=== PATIENT | female | born 1980 | race Caucasian/White ===

== ENCOUNTER 2017-03-12 20:58 | Emergency (ER) | payer SELFPAY ==
[~2017-03-12] VITALS: Ht 154.9 cm; Wt 50.5 kg
[~2017-03-12 20:58] MED LIST: AZITHROMYCIN500 M1 PO; CEFTIN500 MG PO; LEVAQUIN500 MG PO; NAPROXEN500 MG PO; NORCO 5/3251 TABLET PO; ORAL ANESTHETIC7 GM MM; PERCOCET 5/31 TABLET PO; SKELAXIN800 MG PO
[2017-03-12] MEDS ORDERED: WELLBUTRIN XL150 MG PO (22:01)
[2017-03-12 22:17] LABS: HEMATOCRIT 40.5 % (36.0-46.0); MCH 30.1 PG (29.0-34.0); MCHC 33.3 G/DL (30.0-36.0); MCV 90.4 FL (83-99); MEAN PLAT.VOLUME 11.3 uM^3 (9.5-12.4); PLATELET COUNT 203 K/uL (156-360); RBC DIS.WIDTH-CV 13.1 % (11.8-14.6); RBC DIS.WIDTH-SD 43.1 % (39-53); RED BLOOD COUNT 4.48 M/uL (3.80-5.20); WHITE BLOOD COUNT 6.7 K/uL (4.1-10.2)
[2017-03-12 22:27] LABS: CHLORIDE 106 mEq/L (99-109); POTASSIUM 4.3 mEq/L (3.7-5.4); SODIUM 140 mEq/L (136-147)
[2017-03-12 22:30] LABS: GLUCOSE 87 mg/dL (70-99)
[2017-03-12 22:31] LABS: ANION GAP 8 MEQ/L (2-14); TOTAL BILIRUBIN 0.2 mg/dL (0.0-1.0)
[2017-03-12 22:33] LABS: ALKALINE PHOSPHATASE 59 IU/L (3-129); GFR ESTIMATE (CALCULATED) > 59 mL/min/
[2017-03-12 22:34] LABS: UREA NITROGEN (BUN) 10 mg/dL (9-23)
[2017-03-12 22:42] LABS: QUANTITATIVE HCG < 4.0 MIU/ML
[2017-03-12 23:44] LABS: ADD MIUA? YES; BILIRUBIN NEGATIVE; BLOOD MODERATE; COLOR YELLOW ((YELLOW)); GLUCOSE (STRIP) NEGATIVE; KETONES NEGATIVE; LEUKOCYTES NEGATIVE; NITRITE NEGATIVE; PROTEIN (STRIP) NEGATIVE; SPECIFIC GRAVITY 1.014 (1.000-1.030); UROBILINOGEN 0.2 MG/DL (0.2-1.0)
[2017-03-12 23:55] LABS: BACTERIA RARE /HPF; EPITHELIAL CELLS RARE /HPF; MUCUS NONE SEEN /LPF; UCUL ADDED? NO
[2017-03-13] MEDS ORDERED: PROVERA,CYCRIN10 MG PO (00:08)
[2017-03-13 00:36] VITALS: BP 126/76
== END 2017-03-13 00:37 | disposition home or self-care (01) ==
LOC: EME 20:58
DX: N93.8 Other specified abnormal uterine and vaginal bleeding (principal); Z98.51 Tubal ligation status; J45.909 Unspecified asthma, uncomplicated; F17.200 Nicotine dependence, unspecified, uncomplicated; Z88.0 Allergy status to penicillin
CPT/HCPCS: 76856; 80053; 81003; 84702; 85027; 99281; 99284